=== PATIENT | female | born 1990 | race Hispanic/Latino ===

== ENCOUNTER 2022-06-21 10:46 | Emergency (ER) | payer OTHER ==
[~2022-06-21] VITALS: Ht 165.1 cm; Wt 68.9 kg
[2022-06-21] MEDS ORDERED: PRENATAL 19 CH1 EAC1 PO (11:33)
[2022-06-21] MEDS ORDERED: PROMETHAZINE HC25 M1 PO (13:22)
== END 2022-06-21 13:52 | disposition home or self-care (01) ==
LOC: ED 10:46
DX: O98.511 Other viral diseases complicating pregnancy, first trimester (principal); U07.1 COVID-19; Z3A.01 Less than 8 weeks gestation of pregnancy
CPT/HCPCS: 36415; 80053; 81001; 83690; 85025; 87502; A9270; C9803; J7030; U0003